=== PATIENT | male | born 1980 | race African-American/Black ===

== ENCOUNTER 2020-04-19 13:09 | Emergency (ER) | payer BC ==
[~2020-04-19] VITALS: Ht 177.8 cm; Wt 118.2 kg
[2020-04-19 13:15] VITALS: Ht 177.8 cm; Wt 118.2 kg
[2020-04-19 14:32] LABS: BASOPHILS 0.3 % (0-2); EOSINOPHILS 0.4 % (0-7); HEMATOCRIT 46.8 % (42.0-54.0); IMMATURE GRANULOCYTES 0.6 % (0-5); MCHC 34.2 g/dL (31.0-37.0); MCV 87.8 fL (80.0-100.0); MEAN PLATELET VOLUME 9.3 fL (7.4-10.4); MONOCYTES 4.3 % (2-11); NEUTROPHILS 81.4 % (40-80); PLATELET COUNT 175 10x3/uL (130-400); RBC 5.33 10x6/uL (4.20-6.10); RDW 12.9 % (11.5-14.5); WBC 9.3 10x3/uL (4.8-10.8)
[2020-04-19 14:45] LABS: CALC OSMOLALITY 275 mosm/kg (275-300); CALCIUM 9.3 mg/dL (8.5-10.1); CHLORIDE - SERUM 103 mmol/L (98-107); CREATININE - SERUM 1.6 mg/dL (0.6-1.3); GLUCOSE 113 mg/dL (74-106); SODIUM 137 mmol/L (136-145); UREA NITROGEN 14 mg/dL (7-18); eGFR NON AFRICAN AMERICAN 51 mL/min (90-120)
[2020-04-19 14:53] LABS: ALBUMIN 3.8 g/dL (3.4-5.0); ALKALINE PHOSPHATASE 98 U/L (30-120); ALT (SGPT) 112 U/L (10-68); LIPASE 130 U/L (73-393); PROTEIN - SERUM 8.3 g/dL (6.4-8.2)
[2020-04-19 14:54] LABS: TROPONIN-I < 0.017 ng/mL (0.000-0.060)
[2020-04-19 15:38] LABS: BILIRUBIN NEGATIVE (NEGATIVE); GLUCOSE NEGATIVE (NEGATIVE); KETONE NEGATIVE (NEGATIVE); NITRITE NEGATIVE (NEGATIVE); SPECIFIC GRAVITY 1.025 (1.005-1.020); UROBILINOGEN NORMAL (NORMAL)
[2020-04-19 15:45] LABS: WHITE CELLS - URINE NSEEN /hpf (NEGATIVE)
[2020-04-19 15:46] LABS: AMORPHOUS SEDIMENT >1+ /lpf (NONE SEEN); BACTERIA FEW /hpf (NEGATIVE); EPITHELIAL CELLS NSEEN /hpf (0-5)
[2020-04-19] MEDS ORDERED: TYLENOL W/CODEI1 TAB PO (15:55)
[2020-04-19] MEDS ORDERED: FLOMAX0.4 MG PO (15:55)
[2020-04-19 16:27] VITALS: BP 145/91
== END 2020-04-19 16:27 | disposition home or self-care (01) ==
LOC: D.ER 13:09
PROVIDERS: Family Medicine
DX: N20.0 Calculus of kidney (principal); N23 Unspecified renal colic